=== PATIENT | male | born 1950 | race Caucasian/White ===

== ENCOUNTER 2024-11-01 14:29 | Emergency (ER) | payer MEDICARE, OTHER, SELFPAY ==
[2024-11-01 15:26] VITALS: BP 140/88; PULSE 104; RESP 16; TEMP 36.3; O2SAT 96
--- NOTE | 2024-11-01 16:06 | ED.URI ---
HPI - URI/Sore Throat General Chief Complaint: Upper Respiratory Infection Stated Complaint: cough Time Seen by Provider: 11/01/24 16:06 History of Present Illness HPI Narrative: 74 y/o male with hx Afib presented for c/o headache, nasal congestion and a cough for 5 days. Endorses cough is worse at night. Denies sob, wheezing, n/v/d/f/c. Tested negative for covid 2 days ago. Taking Mucinex and Tylenol p.m.. Related Data Home Medications ?Medication ?Instructions ?Recorded ?Confirmed ?Last Taken ?Type albuterol sulfate 90 mcg/actuation inhalation 11/01/24 Unknown History aerosol inhaler allopurinol 300 mg tablet mg 11/01/24 Unknown History apixaban 5 mg tablet (Eliquis) mg 11/01/24 Unknown History diltiazem HCl 30 mg tablet mg 11/01/24 Unknown History oxcarbazepine 300 mg mg PO 11/01/24 Unknown History tablet,extended release 24 hr Allergies Allergy/AdvReac Type Severity Reaction Status Date / Time Penicillins Allergy Mild rash Verified 11/01/24 16:17 Review of Systems Review of Systems: per HPI [facility] Past Medical History Medical History (Updated 11/01/24 @ 16:25 by Jasmyne Ortez APRN) Sleep apnea Afib Social History Social History (Updated 11/01/24 @ 16:26 by Jasmyne Ortez APRN) Smoking status: Former smoker Exam Narrative: GENERAL: mildly ill-appearing, no acute distress. EYES: conjunctivae clear ENT: Mucous membranes moist. Nares with dried blood. TMs pearly khalil with normal light reflex bilaterally; no tragal tenderness. Oropharynx erythematous without lesions. No drooling, no hoarseness, no trismus, uvula midline. No tripod positioning, hot potato voice, or soft palate swelling. NECK: Supple. No lymphadenopathy CHEST: Clear to auscultation, breath sounds equal. No respiratory distress, speaks in full sentences. HEART: Regular rate and rhythm. No murmur heard. SKIN: Warm, dry, no rash. NEURO: Alert and oriented x3. Course Course Emergency Course: Patient is aware of diagnosis, understands and agrees to treatment plan. Anticipatory guidance given. Patient agrees to follow-up as directed and is aware of reasons to seek care at the emergency department. Portions of this record may have been created with voice recognition software Level of Care: Express Care Visit Vital Signs Vital signs: Vital Signs Temperature 97.4 F L 11/01/24 15:26 Pulse Rate 104 H 11/01/24 15:26 Respiratory Rate 16 11/01/24 15:26 Blood Pressure 140/88 11/01/24 15:26 Pulse Oximetry 96 11/01/24 15:26 Oxygen Delivery Room Air 11/01/24 15:26 Temperature 97.4 F L 11/01/24 15:26 Pulse Rate 104 H 11/01/24 15:26 Respiratory Rate 16 11/01/24 15:26 Blood Pressure 140/88 11/01/24 15:26 Pulse Oximetry 96 11/01/24 15:26 Oxygen Delivery Room Air 11/01/24 15:26 MDM - URI/Sore Throat MDM Narrative Medical decision making narrative: Discussed physical exam findings consistent with URI. Advise supportive treatments. Patient is appropriate for outpatient treatment and follow-up. Differential Diagnosis Differential diagnosis: Likely upper respiratory infection, viral infection and pharyngitis Discharge Plan Discharge Clinical Impression: Upper respiratory infection Patient Disposition: Home, Self-Care Condition: Stable Instructions: Antibiotic Form, Upper Respiratory Infection (ED) Additional Instructions: Recommendations: Flonase spray and Zyrtec (or Claritin/Esperanza) over the counter Cough syrup may cause drowsiness; avoid driving or take it at night time. Coricidin HBP if you have hypertension Tylenol 1000mg every 8 hours as needed for pain Rest, fluids, and increase humidity of the air at home. If no improvement or symptoms worsen after 3-5 days, you can start the antibiotic Follow up with your primary care provider in 1 week. Go to the ER for worsening symptoms or concerns. Patient Language: Greek Prescriptions: New azithromycin [Zithromax Z-Preet] 250 mg tablet See Rx Instructions .ROUTE .COMPLEX Qty: 6 0RF Rx Instructions: For 250 mg dose pack: take 500 mg today (day 1), then 250 mg for 4 days (days 2-5) benzonatate 200 mg capsule 200 mg PO TID PRN (Reason: cough) Qty: 20 0RF No Action allopurinol 300 mg tablet albuterol sulfate 90 mcg/actuation HFA aerosol inhaler INHALATION diltiazem HCl 30 mg tablet oxcarbazepine 300 mg tablet extended release 24 hr PO Eliquis 5 mg tablet Follow-up/Referrals: Isaiah,Jonny Coleman PA-C [Primary Care Provider] - Time of Disposition: 16:23
== END 2024-11-01 16:24 | disposition home or self-care (01) ==
PROVIDERS: Emergency Provider Nurse Practitioner Family; PCP Physician Assistant
DX: J06.9 Acute upper respiratory infection, unspecified (principal); I48.91 Unspecified atrial fibrillation; Z79.01 Long term (current) use of anticoagulants; Z79.899 Other long term (current) drug therapy; Z87.891 Personal history of nicotine dependence
CPT/HCPCS: 99203; G0463

== ENCOUNTER 2025-07-10 21:58 | Emergency (ER) | payer MEDICARE, OTHER, SELFPAY ==
--- NOTE | ~2025-07-10 | CT_ITS ---
EXAMINATION: CT brain wo con DATE: 07/10/2025 22:21 INDICATION: Anticoagulated patient post fall TECHNIQUE: Computed tomography (CT) of the head was performed without intravenous contrast. Sagittal and coronal reconstructions were performed. The mA was adjusted according to patient size. Iterative reconstruction technique was employed. The dose-length product was 605.33 mGy-cm. COMPARISON: None FINDINGS: No fracture. 7 mm region of hypoattenuation with some associated vasogenic edema in the right frontal lobe consistent with small intraparenchymal hemorrhage. Similar size small high attenuation lesion in the body of the right lateral ventricle along the septum pellucidum suggesting additional small int raventricular hemorrhage. Ventricles are otherwise normal and symmetric. No acute infarction or abnormal extra axial fluid collection. No mass/mass effect. Changes of bilateral intraocular lens replacement. The orbits and mastoid air cells are normal. Mucosal thickening in the bilateral ethmoid and right maxillary and sphenoid sinuses. Intracranial calcified cerebral atherosclerosis is noted. IMPRESSION: 1. Small right frontal intraparenchymal hemorrhage and small intraventricular hemorrhage in the right lateral ventricle. According to documentation in report provided by Madeline, Dr. Js Abad discussed these findings with emergency room Dr. Hector at 11:44 PM. Reviewed, dictated and finalized at location A. IMPRESSION: 1. Small right frontal intraparenchymal hemorrhage and small intraventricular h emorrhage in the right lateral ventricle. According to documentation in report provided by Madeline, Dr. Js Abad discussed these findings with emergency room Dr. Hector at 11:44 PM.
--- NOTE | ~2025-07-10 | CT_ITS ---
EXAMINATION: CT cervical spine wo con DATE: 07/10/2025 22:21 INDICATION: Anticoagulated patient post fall TECHNIQUE: Computed tomography (CT) of the cervical spine was performed without intravenous contrast. Automated exposure control and iterative reconstruction technique were employed. The dose-length product was 545.08 mGy-cm. COMPARISON: None FINDINGS: Severe atlantoaxial osteoarthritis. 2 mm retrolisthesis C3 on C4 and C4 on C5. Vertebral body heights are normal. No fracture. Moderate to severe disc height loss at C4-C5 and C6-C7, moderate disc height loss at C3-C4, C5-C6 and C7-T1 and mild disc height loss at C2-C3. Disc bulges at C2-C3, C4-C5 and C5-C6 and posterior disc osteophyte complexes at C3-C4 and C6-C7 contributing to mild multilevel central canal stenosis. There is bilateral multilevel severe cervical uncovertebral osteoarthritis and moderate facet osteoarthritis. This contributes to moderate to severe neural foraminal stenosis on the left at C3-C4 and bilaterally at C4-C5 and moderate on the right at C3-C4, bilaterally at C5-C6 and on the left at C6-C7 and mild at levels. Small of atherosclerotic calcific location at the bilateral carotid bulbs. Cervical soft tissues are otherwise unremarkable. Visualized apices of lungs are clear. IMPRESSION: 1. Severe cervical spondylosis. No acute osseous abnormality. Reviewed, dictated and finalized at location A.
[2025-07-10 22:01] VITALS: BP 133/68; PULSE 59; RESP 16; TEMP 36.8; O2SAT 96
--- OUTSIDE RECORDS SUMMARY | 2025-07-10 22:01 | XMS_ITS | Clinical Summary ---
Author Organization [facility] Address [address] [place] [address] Care Team Providers Care Eyeglass Fitter Name Role Phone Unavailable Primary Care Provider Unavailabl e Social History Tobacco Use Types Packs/Day Years Used Date Smoking Tobacco: Never Assessed Sex and Gender Information Value Date Recorded Sex Assigned at Not on file Legal Sex Male 8:15 PM CDT Gender Identity Not on file Sexual Orientation Not on file Plan of Treatment Health Maintenance Due Date Last Done Comments Colorectal Cancer Screening Colonoscopy (10 Years) 1950 Hepatitis C 02/11/1970 DTaP, Tdap and Td Vaccines ( 1 - Tdap) 02/11/1971 Pneumococcal Vaccine: 50+ Ye ars (1 of 1 - PCV) 02/11/2002 Zoster Vaccines (1 of 2) 02/11/2002 COVID-19 Vaccine ( - 2023-2 5 season) 2024 RSV Immunization or 60+ Years (1 - 1-dose 75+ series) 02/11/2027 Meningococcal B Vaccine Aged Out No l onger eligible based on patient's age to complete this topic Meningococcal Vaccine Aged Out No jewel lucie eligible based on patient's age to complete this topic RSV Immunizations Under 20 Months Aged Out No longer eligible based on patient's age to complete this topic
--- OUTSIDE RECORDS SUMMARY | 2025-07-10 22:01 | XMS_ITS | Encounter Summary ---
Author Organization [facility] Healthcare Address [address] [place] [address] Care Team Providers Care Music Engraver Name Role Phone Jonny Colon Primary Care Provider [phone] Cordell Zavala MD Unavailable [phone] Encounter Details Date Type Department Care Team (Late st Contact Info) Description 02/06/2025 Documentation [facility] [address] [place] [id number] Zaria Gonzalez RN Social History Tobacco Use Types Packs/Day Years Used Date Smoking Tobacco: Former Cigarettes 1 17 1 970 - 1986 Passive Smoke Exposure: Past Smokeless Tobacco: Never Alcohol Use Standard Drinks/Week Comments Yes 0 (1 standard drink = 0.6 oz pur e alcohol) 2 glasses of wine daily [facility] Utilities Answer Date Recorded In the past 12 months has [employer], gas, oil, or water [employer] threatened to shut off services in your home? No 10/07/2023 Social Connection and Isolation Panel Answer Date Recorded In a typical week, how many times do you talk on the phone with family, friends, or neighbors? More than three times a week 10/07/2023 How often do you get togethe r with friends or relatives? More than three times a week 10/07/2023 How often do you attend [facility] or quaker services? More than 4 times per year 10/07/2023 Do you belong to any clubs o r organizations such as sikh groups, unions, fraternal or athletic groups, or school groups? No 10/07/2023 How often do you attend meet ings of the clubs or organizations you belong to? Never 10/07/2023 Are you , , di vorced, , never , or living with a partner? 10/07/2023 AUDIT-C Answer Date Recorded Q1: How often do you have a drink containing alcohol? 4 or more times a week 01/17/2025 Q2: How many drinks containi ng alcohol do you have on a typical day when you are drinking? 1 or 2 Q3: How often do you have si x or more drinks on one occasion? Never 01/17/2025 Overall Financial Resource Strain (CARDIA) Answe r Date Recorded How hard is it for you to pa y for the very basics like food, housing, medical care, and heating? Not hard at all 10/07/2023 PHQ-2 Answer Date Recorded PHQ-2 Total Score (If total score is 3 or more points, staff should administer the PHQ-9) 0 01/17/2025 Hunger Vital Sign Answer Date Recorded Within the past 12 months, y ou worried that your food would run out before you got the money to buy more. Never true 10/07/20 23 Within the past 12 months, t he food you bought just didn't last and you didn't have money to get more. Never true 10/07/2023 PRAPARE - Transportation Answer Date Re corded In the past 12 months, has l ack of transportation kept you from medical appointments or from getting medications? No 09/11 In the past 12 months, has l ack of transportation kept you from meetings, work, or from getting things needed for daily living? No 10/07/2023 Housing Stability Vital Sign Answer Richard e Recorded In the last 12 months, was t here a time when you were not able to pay the mortgage or rent on time? No 10/07/2023 In the last 12 months, how many places have you lived? 1 10/07/2023 In the last 12 months, was t here a time when you did not have a steady place to sleep or slept in a correction (including now)? No 10/07/2023 PHQ-9 Answer Date Recorded PHQ-9 Total Score 0 01/17/2025 Personal Safety Answer Date Recorded Have you ever been in or are you currently in a harmful physical or emotional relationship or is someone making you feel afraid or unsafe? 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
--- OUTSIDE RECORDS SUMMARY | 2025-07-10 22:01 | XMS_ITS | Encounter Summary ---
Author Organization [facility] Facility Care Team Providers Care Vortex Operator Name Role Phone Jonny Colon Primary Care Provider [phone] Cordell Zavala MD Unavailable [phone] Encounter Details Date Type Department Care Team (Latest Contact Info) Description 12/17/2017 Orders Only [facility]IN[facility] ProviderVega MD [address] [place] [id number] Social History Tobacco Use Types Packs/Day Years Used Date Smoking Tobacco: Never Sex and Gender Information Value Date Recorded Sex Assigned at Not on file Legal Sex Male 8:26 AM UNIFIED COMMUNICATIONS ENGINEER Gender Identity Male 12/26/2020 7:25 PM UNIFIED COMMUNICATIONS ENGINEER Sexual Orientation Straight 12/26/2020 7: 25 PM UNIFIED COMMUNICATIONS ENGINEER documented as of this encounter Plan of Treatment Not on file documented as of this encounter Procedures Procedure Name Priority Date/Time Associated Diagnosis Comments COLONOSCOPY - SCAN 12/17/2017 12 :00 AM UNIFIED COMMUNICATIONS ENGINEER documented in this encounter Results * COLONOSCOPY - SCAN (12/17/2017 12:00 AM UNIFIED COMMUNICATIONS ENGINEER) Narrative 12/17/2017 12:00 AM UNIFIED COMMUNICATIONS ENGINEER Ordered by an unspecified provider. Historical Provider Final Res ult documented in this encounter Visit Diagnoses Not on filedocumented in this encounter Additional Health Concerns Infection Onset Date Last Indicated Resolved Time COVID: Suspected 10/07/2023 10/07/2023 10/07/2023 6:54 AM UNIFIED COMMUNICATIONS ENGINEER documented as of this encounter Care Teams Vortex Operator Relationship Specialty Start Date End Date Jonny Colon PA PCP - General Family Medicine 05/07/19 Cordell Zavala MD Consulting Physician Cardiovascular Disease 10/09/23 documented as of this encounter
--- OUTSIDE RECORDS SUMMARY | 2025-07-10 22:01 | XMS_ITS | Encounter Summary ---
Author Organization [facility] Facility Care Team Providers Care Insurance Customer Service Specialist Name Role Phone Jonny Colon Primary Care Provider [phone] Cordell Zavala MD Unavailable [phone] Encounter Details Date Type Department Care Team (Latest Contact Info) Description 03/11/2016 Orders Only [facility]INCON[facility] ProviderVega MD [address] [place], [place] [id number] Social History Tobacco Use Types Packs/Day Years Used Date Smoking Tobacco: Never Sex and Gender Information Value Date Recorded Sex Assigned at Not on file Legal Sex Male 8:26 AM APPRAISER Gender Identity Male 12/26/2020 7:25 PM APPRAISER Sexual Orientation Straight 12/26/2020 7: 25 PM APPRAISER documented as of this encounter Plan of Treatment Not on file documented as of this encounter Procedures Procedure Name Priority Date/Time Associated Diagnosis Comments SCAN - LABS 03/11/2016 12:00 AM CDT SCAN - LABS 03/11/2016 12:00 AM CDT SCAN - LABS 03/11/2016 12:00 AM CDT SCAN - LABS 03/11/2016 12:00 AM CDT documented in this encounter Results * SCAN - LABS (03/11/2016 12:00 AM CDT) Narrative 03/11/2016 12:00 AM CDT Ordered by an unspecified provider. Historical Provider Final Res ult * SCAN - LABS (03/11/2016 12:00 AM CDT) Narrative 03/11/2016 12:00 AM CDT Ordered by an unspecified provider. Historical Provider Final Res ult * SCAN - LABS (03/11/2016 12:00 AM CDT) Narrative 03/11/2016 12:00 AM CDT Ordered by an unspecified provider. Historical Provider Final Res ult * SCAN - LABS (03/11/2016 12:00 AM CDT) Narrative 03/11/2016 12:00 AM CDT Ordered by an unspecified provider. Historical Provider Final Res ult documented in this encounter Visit Diagnoses Not on filedocumented in this encounter Additional Health Concerns Infection Onset Date Last Indicated Resolved Time COVID: Suspected 10/07/2023 10/07/2023 10/07/2023 6:54 AM APPRAISER documented as of this encounter Care Teams Insurance Customer Service Specialist Relationship Specialty Start Date End Date Jonny Colon PA PCP - General Family Medicine 05/07/19 Cordell Zavala MD Consulting Physician Cardiovascular Disease 10/09/23 documented as of this encounter
--- OUTSIDE RECORDS SUMMARY | 2025-07-10 22:01 | XMS_ITS | Patient Health Record ---
Author Organization [facility] Address [address] [place], [place] [id number] Care Team Providers Care Coal Screener Name Role Phone MASTER Brito Unavailable [phone] Reason For Referral No Information Plan Of Treatment No Information Insurance Providers Payer Name Payer Address Payer Phone Subscriber Number Group Number Insured Name Patient Relationship to Insured Coverage Start Date Coverage End Date [facility] ([facility] [address] [place], [place] [id number] CATHY LOVING Self - patient is the insured [facility] [address] [place], [place] [id number] CATHY LOVING Self - patient is the insured
--- OUTSIDE RECORDS SUMMARY | 2025-07-10 22:01 | XMS_ITS | Encounter Summary ---
Author Organization [facility] Facility Care Team Providers Care Industrial Health Engineer Name Role Phone Jonny Colon Primary Care Provider [phone] Cordell Zavala MD Unavailable [phone] Encounter Details Date Type Department Care Team (Latest Contact Info) Description 01/16/2016 Orders Only [facility]INCON[facility] ProviderVega MD [address] [place], [place] [id number] Social History Tobacco Use Types Packs/Day Years Used Date Smoking Tobacco: Never Sex and Gender Information Value Date Recorded Sex Assigned at Not on file Legal Sex Male 8:26 AM CLOTH BOIL OFF MACHINE OPERATOR Gender Identity Male 12/26/2020 7:25 PM CLOTH BOIL OFF MACHINE OPERATOR Sexual Orientation Straight 12/26/2020 7: 25 PM CLOTH BOIL OFF MACHINE OPERATOR documented as of this encounter Plan of Treatment Not on file documented as of this encounter Procedures Procedure Name Priority Date/Time Associated Diagnosis Comments CARDIOLOGY REPORT 01/16/2016 12: 00 AM CLOTH BOIL OFF MACHINE OPERATOR documented in this encounter Results * CARDIOLOGY REPORT (01/16/2016 12:00 AM CLOTH BOIL OFF MACHINE OPERATOR) Anatomical Region Laterality Modality Other Narrative 01/16/2016 12:00 AM CLOTH BOIL OFF MACHINE OPERATOR Ordered by an unspecified provider. Historical Provider [facility] Final Result documented in this encounter Visit Diagnoses Not on filedocumented in this encounter Additional Health Concerns Infection Onset Date Last Indicated Resolved Time COVID: Suspected 10/07/2023 10/07/2023 10/07/2023 6:54 AM CLOTH BOIL OFF MACHINE OPERATOR documented as of this encounter Care Teams Industrial Health Engineer Relationship Specialty Start Date End Date Jonny Colon PA PCP - General Family Medicine 05/07/19 Cordell Zavala MD Consulting Physician Cardiovascular Disease 10/09/23 documented as of this encounter
--- NOTE | 2025-07-10 22:44 | ED_ITS ---
HPI - General Adult General Chief complaint: Trauma Stated complaint: FALL Time Seen by Provider: 07/10/25 22:40 History of Present Illness HPI narrative: Patient 75-year-old gentleman presents emergency department with chief complaint of head injury. Patient reports that he had had some drinks this evening missed step fell forward and hit his face the patient had approximately 30-45 second loss of consciousness and the patient's family reports that he takes Eliquis. Patient reports that he has an abrasion on the right side of his face and abrasions to his knees the family reports that he is acting about his normal self but did report that he had some snoring respirations during the episode of loss of consciousness Related Data Home Medications ?Medication ?Instructions ?Recorded ?Confirmed ?Last Taken ?Type albuterol sulfate 90 mcg/actuation inhalation 11/01/24 Unknown History aerosol inhaler allopurinol 300 mg tablet mg 11/01/24 Unknown History apixaban 5 mg tablet (Eliquis) mg 11/01/24 Unknown Hi story diltiazem HCl 30 mg tablet mg 11/01/24 Unknown Histor y oxcarbazepine 300 mg mg PO 11/01/24 Unknown Hist ory tablet,extended release 24 hr Allergies Allergy/AdvReac Type Severity Reaction Status Date / Time Penicillins Allergy Mild rash Verified 07/10/25 22:04 Review of Systems Review of Systems: A 10 system review of systems was completed on the patient and is negative except for what is stated in the HPI. Nursing and ancillary documentation was reviewed. PMFSH Past Medical History Medical History Sleep apnea Afib Social History Social History Smoking status: Former smoker Exam Narrative: GENERAL: Well-appearing, well-nourished, and in no acute distress. HEAD: Normocephalic, abrasion present the right side of the face. EYES: PERRLA and EOMI. ENT: Nares clear, no rhinorrhea or epistaxis. Mucous membranes moist. NECK: Supple. CHEST: Clear to auscultation. No respiratory distress. HEART: Regular rate and rhythm. No murmur heard. Normal peripheral pulses. ABDOMEN: Soft, nontender, nondistended, normal active bowel sounds. EXTREMITIES: Normal range of motion abrasion to bilateral knees. No edema. SKIN: Warm, dry, no rash. NEURO: No focal deficits. Alert and oriented x3. GCS 15 PSYCH: Normal mood and affect. Course Vital Signs Vital signs: Vital Signs Temperature 36.8 C 07/10/25 22:01 Pulse Rate 59 L 07/10/25 22:01 Respiratory Rate 16 07/10/25 22:01 Blood Pressure 133/68 07/10/25 22:01 Pulse Oximetry 96 07/10/25 22:01 Oxygen Delivery Room Air 07/10/25 22:01 Temperature 36.8 C 07/10/25 22:01 Pulse Rate 59 L 07/10/25 22:01 Respiratory Rate 16 07/10/25 22:01 Blood Pressure 133/68 07/10/25 22:01 Pulse Oximetry 96 07/10/25 22:01 Oxygen Delivery Room Air 07/10/25 22:01 Medical Decision Making MDM Narrative Medical decision making narrative: Differential diagnosis includes intracranial hemorrhage, cervical spine fracture, skull fracture CT head shows a right frontal lobe khalil-white junction region consistent with shearing and possible hemorrhage. The right lateral ventricle atrium shows a tiny interval hemorrhage CT C-spine showed no evidence of cervical spine fracture In discussion with the patient in the fate patient's family they requested to go to [place] Vital Signs Vital Signs: Vital Signs Temperature 36.8 C 07/10/25 22:01 Pulse Rate 59 L 07/10/25 22:01 Respiratory Rate 16 07/10/25 22:01 Blood Pressure 133/68 07/10/25 22:01 Pulse Oximetry 96 07/10/25 22:01 Oxygen Delivery Room Air 07/10/25 22:01 Temperature 36.8 C 07/10/25 22:01 Pulse Rate 59 L 07/10/25 22:01 Respiratory Rate 16 07/10/25 22:01 Blood Pressure 133/68 07/10/25 22:01 Pulse Oximetry 96 07/10/25 22:01 Oxygen Delivery Room Air 07/10/25 22:01 Critical Care Time Critical Care Time Critical Care Time: Yes Total Critical Care Time: 35 Discharge Plan Discharge Clinical Impression: Fall from ground level, Head injury, Intraventricular hemorrhage Patient Disposition: Acute Care Hospital Condition: Stable Patient Language: Guyanese Prescriptions: No Action allopurinol 300 mg tablet albuterol sulfate 90 mcg/actuation HFA aerosol inhaler INHALATION diltiazem HCl 30 mg tablet oxcarbazepine 300 mg tablet extended release 24 hr PO Eliquis 5 mg tablet azithromycin [Zithromax Z-Preet] 250 mg tablet See Rx Instructions .ROUTE .COMPLEX Qty: 6 0RF Rx Instructions: For 250 mg dose pack: take 500 mg today (day 1), then 250 mg for 4 days (days 2-5) benzonatate 200 mg capsule 200 mg PO TID PRN (Reason: cough) Qty: 20 0RF Follow-up/Referrals: Isaiah,Jonny Coleman PA-C [Primary Care Provider] Time of Disposition: 22:49
[2025-07-10 22:51] VITALS: BP 121/73; PULSE 58; RESP 17; O2SAT 94
[2025-07-10 22:56] VITALS: PULSE 57
[2025-07-11 00:36] VITALS: BP 123/75; PULSE 55; RESP 17; O2SAT 96
[2025-07-11 00:39] VITALS: BP 123/75; PULSE 57; RESP 17; O2SAT 94
--- NOTE | 2025-07-11 01:20 | PC.NURSE ---
EMS here to transfer patient to [facility].
== END 2025-07-11 01:35 | disposition short-term general hospital (02) ==
PROVIDERS: Emergency Provider Emergency Medicine; PCP Physician Assistant
DX: S06.341A Traumatic hemorrhage of right cerebrum with loss of consciousness of 30 minutes or less, initial encounter (principal); I48.91 Unspecified atrial fibrillation; G47.30 Sleep apnea, unspecified; Z79.01 Long term (current) use of anticoagulants; M47.812 Spondylosis without myelopathy or radiculopathy, cervical region
CPT/HCPCS: 70450; 72125; 99291